=== PATIENT | male | born 1945 | race Two or more races ===

== ENCOUNTER 2018-11-18 12:22 | Emergency (ER) | payer OTHER ==
[~2018-11-18] VITALS: Ht 157.5 cm; Wt 68.0 kg
--- NOTE | 2018-11-18 12:40 | NUR ---
[id number], PER REPORT [facility], FOREHEAD LAC. PT C/O DIZZINESS [employer], PATIENT A/OX3, ROMANIAN SPEAKING, DAUGHTER AT BEDSIDE, PATIENT BREATHING EVEN AND UNLABORED, NO SOB NOTED. LACERATION COVERED WITH BANDAGE.WILL CONTINUE TO MONITOR.
[2018-11-18] MEDS ORDERED: TDAP [DIPH/PERTUSSIS/TET] 0.5 ML VIAL IM ONE ×2 (12:45→13:00)
[2018-11-18] MEDS ORDERED: LIDOCAINE 1%-EPI 1:100,000 20 ML VIAL ONE (12:45)
[2018-11-18] MEDS ORDERED: ACETAMINOPHEN ES 500 MG TABLET ONE (12:45)
[2018-11-18] MEDS ORDERED: ACETAMINOPHEN ES 500 MG TABLET PO ONE (13:00)
[2018-11-18] MEDS ORDERED: KETOROLAC TROMETHAMINE INJ 30 MG/ML VIAL IV ONE (13:00)
[2018-11-18] MEDS ORDERED: LIDOCAINE 1%-EPI 1:100,000 20 ML VIAL TP ONE (13:00)
[2018-11-18] MEDS ORDERED: diphenhydrAMINE HCL 50 MG/ML VIAL IV ONE (13:00)
[2018-11-18] MEDS ORDERED: METOCLOPRAMIDE HCL 10 MG/2 ML VIAL IV ONE (13:00)
--- NOTE | 2018-11-18 13:30 | NUR ---
Wound cleansed and sutured done by Frandy rosario.
--- NOTE | 2018-11-18 13:40 | NUR ---
patient a/ox3, denies pain or discomfort, no change in LOC, ambulates with steady gait. No distress noted.
--- NOTE | 2018-11-18 13:45 | NUR ---
Patient discharged to home in stable condition. Written and verbal after care instructions given to family member. Patient and family verbalizes understanding of instruction.
[2018-11-18 13:46] VITALS: BP 148/97
== END 2018-11-18 13:50 | disposition home or self-care (01) ==
LOC: ER 12:22
DX: S01.112A Laceration without foreign body of left eyelid and periocular area, initial encounter (principal); S09.8XXA Other specified injuries of head, initial encounter; R42 Dizziness and giddiness; I10 Essential (primary) hypertension; W01.0XXA Fall on same level from slipping, tripping and stumbling without subsequent striking against object, initial encounter; Y93.01 Activity, walking, marching and hiking; Y92.89 Other specified places as the place of occurrence of the external cause; Y99.8 Other external cause status
CPT/HCPCS: 12011; 70450; 72125; 90471; 90715; 99284; A6402; A6403 ×2; J3490